=== PATIENT | male | born 1985 | race Caucasian/White ===

== ENCOUNTER 2020-12-06 21:06 | Outpatient (REF) | payer BC, SELFPAY ==
[2020-12-06 19:48] LABS: HCT 39.1 % (40.0-50.0); HGB 12.8 g/dL (13.5-17.5); MCH 29.6 pg (27.0-33.0); MCHC 32.7 % (32.0-36.0); MCV 90.3 fL (80-95); MPV 10.6 fL (8.0-11.0); Platelet Count 287 10^3/uL (130-400); RBC 4.33 10^6/uL (4.36-5.78); RDW 13.1 % (11.8-14.1); RDW-SD 43.1 fL; WBC 6.87 10^3/uL (4.4-10.8)
[2020-12-06 20:43] LABS: ALT 39 U/L (16-63); AST 23 U/L (15-37); Albumin 3.7 g/dL (3.4-5.0); Alkaline Phosphatase 112 U/L (46-116); Anion Gap 6.9 mmol/L (3-11); BUN 11 mg/dL (7-18); Bilirubin, Total 0.4 mg/dL (0.2-1.0); CO2 27.1 mmol/L (21.0-32.0); CREATININE 1.1 mg/dL (0.70-1.30); Calcium 9.1 mg/dL (8.5-10.1); Chloride 107 mmol/L (98-107); Glucose 93 mg/dL (74-106); Potassium 4.4 mmol/L (3.5-5.1); Sodium 141 mmol/L (136-145); TSH (W/Ref FT4) 0.84 uIU/mL (0.36-3.74); Total Protein 7.1 g/dL (6.4-8.2)
== END 2020-12-06 21:07 | disposition home or self-care (01) ==
LOC: NCHCN 21:06
PROVIDERS: PCP Nurse Practitioner Family; Visit Provider Nurse Practitioner
DX: R00.1 Bradycardia, unspecified (principal)
CPT/HCPCS: 80053; 85027; 84443

== ENCOUNTER 2020-12-16 01:16 | Outpatient (CLI) | payer BC, SELFPAY ==
--- NOTE | 2020-12-16 14:54 | DI.US_ITS ---
APPROVED REPORT EXAM: Comprehensive 2D, Doppler, and color-flow Echocardiogram Patient Location: Out-Patient Engineering Equipment Operator: Keara Gomez RDCS (AE) Indications: Heart murmur Other Information Study Quality: Adequate Conclusion Normal left ventricular wall thickness and chamber size. Estimated ejection fraction is 60%. There are no segmental wall motion abnormalities Normal right ventricular size and systolic function Both atria are normal in size There are no structural valvular abnormalities Mild mitral and tricuspid regurgitation Normal estimated right ventricular systolic pressure Wall motion Left Ventricle The left ventricle is normal size. The left ventricular systolic function is normal. The left ventric ular ejection fraction is within the normal range. There is normal left ventricular wall thickness. T here is normal LV segmental wall motion. There is no ventricular septal defect visualized. LVEF is 60 %. Right Ventricle The right ventricle is normal size. The right ventricular systolic function is normal. The RVSP is 23 .2mmHg. Atria The left atrium size is normal. The right atrium size is normal. The interatrial septum is intact wit h no evidence for an atrial septal defect. Aortic Valve The aortic valve is normal in structure. Aortic valve is trileaflet. There is no aortic valvular sten osis. No aortic regurgitation is present. Mitral Valve The mitral valve is normal in structure. No evidence of mitral valve stenosis. Mild mitral regurgitat ion. Tricuspid Valve The tricuspid valve is normal in structure. There is no tricuspid valve stenosis. Mild tricuspid regu rgitation. Pulmonic Valve The pulmonary valve is normal in structure. There is no pulmonic valvular stenosis. Trace pulmonic re gurgitation. Great Vessels The aortic root is normal in size. The ascending aorta is normal in size. Aortic arch is normal in ca liber. IVC is normal in size and collapses >50% with inspiration. Pericardium There is no pericardial effusion. 2D Dimensions IVSD d PLAX 1.00 cm M: 0.6-1.2 LV Vol A2C d MOD 200.8 mL LVPW d PLAX 1.03 cm M: 0.6 - 1.2 LV Vol A4C d MOD 186.5 mL LVID d PLAX 5.12 cm M: 4.2 - 5.8 LA vol/ BSA A2C s A-L 34.1 mL/m2 LVDs 3.45 cm M: 2.5 - 4.0 LA vol/ BSA A4C s A-L 29.4 mL/m2 Ao Root d 3.04 cm M: 3.1 - 3.7 LA Vol/ BSA Biplane s A-L 31.7 mL/m2 RA Area A4C 13.18 cm2 LA Area A4C s MOD 20.68 cm2 RA Vol/ BSA A4C s A-L 13.1 mL/m2 LA Area A2C s MOD 22.31 cm2 Ao Asc Diam d 2.98 cm M: 2.6 - 3.4 LV EF A4C MOD 59.5 % LV EF Teichholz 59.9 % LV EF A2C MOD 61.4 % LVEF (Edge's) 61.10 % M: 52 - 72 LV EF Biplane MOD 61.1 % LV Volume 140.99 mL M: 62 - 150 SV 120.67 mL LV Volume Index 60.25 mL/m2 M: 34 - 74 SV Index 51.61 mL/m2 LV Vol Biplane MOD 197.5 mL FS 32.05 % M-Mode TAPSE 2.83 cm (M/F) >1.7 LV Diastology MV E' medial 0.092 (>0.07 m/s) E/A Ratio 1.4 LV E/e MED 10.90 (<14) MV E Vmax 1.00 (0.4-1.3 m/s) MV E' lateral 0.177 (>0.1 m/s) MV A Vmax 0.70 (0.4-1.3 m/s) LV E/e LAT 5.65 (<14) MV E/A Ratio 1.42 MV E/E' medial 10.93 MV E/E' lateral 5.68 Aortic Valve LVOT Area 3.69 cm2 AoV Area Vmax 3.40 cm2 LVOT Vmax 1.37 m/s AoV Area/ BSA (Vmax) 1.45 cm2/m2 LVOT Mean Richard. 0.81 m/s ELIA Mean Richard. 2.88 cm2 LVOT Peak Grad 7.5 mmHg ELIA Mean Richard. Index 1.23 cm2/m2 LVOT Mean Grad 3.3 mmHg LVOT VTI 0.280 m LVOT Diam s 2.15 cm AoV Vmax 1.49 m/s Velocity Ratio 0.91 AoV Mean Richard. 1.03 m/s AoV Peak Grad 8.9 mmHg LVOT SV 103.41 mL AoV Mean Grad 4.8 mmHg AoV VTI 0.290 m AoV Area VTI 3.57 cm2 AoV Area/ BSA (VTI) 1.53 cm/m2 Mitral Valve MV DT 222 (160-240 msec) MV PHT 64 msec MV Area PHT 3.42 cm2 MV VTI 0.318 m MV Area VTI 3.25 (4.0-6.0 cm2) Pulmonary Valve PV Vmax 1.28 (0.5-1.5 m/s) RVOT Peak Gr. 2.42 mmHg PV Peak Grad 6.6 mmHg RVOT Mean Gr. 1.25 mmHg PV Mean Grad 3.6 mmHg RVOT VTI 0.180 m PV VTI 0.289 m RVOT Vmax 0.78 m/s Tricuspid Valve TR Peak Grad 20.2 mmHg TR Vmax 2.25 m/s RA Pressure 3.00 mmHg RVSP (TR) 23.2 mmHg
== END 2020-12-16 01:36 ==
PROVIDERS: PCP Nurse Practitioner Family; Visit Provider Nurse Practitioner
DX: R01.1 Cardiac murmur, unspecified (principal); I08.1 Rheumatic disorders of both mitral and tricuspid valves
CPT/HCPCS: 93306

== ENCOUNTER 2021-01-07 00:31 | Outpatient (CLI) | payer BC, SELFPAY ==
--- NOTE | 2021-01-25 10:35 | ZIOP_ITS ---
Date of service: 01/25/21 Time of Service: 10:35 14 Day Lithographic Camera Operator Referring Provider:: Matilda Lunsford Indications:: Bradycardia Note: This is a 14-day monitor and storage bin tender, reportedly ordered for bradycardia Predominant rhythm was sinus. Average heart rate was 68. Maximum was 153, minimum 31 There were very rare atrial and ventricular ectopic beats Sinus bradycardia and sinus arrhythmia were noted during sleep. Transient two to three second pauses were noted during sleep No patient symptoms were reported
== END 2021-01-07 00:32 | disposition home or self-care (01) ==
LOC: RT 00:31
PROVIDERS: PCP Nurse Practitioner; Visit Provider Nurse Practitioner
DX: R00.1 Bradycardia, unspecified (principal)
CPT/HCPCS: 93246

== ENCOUNTER 2021-02-11 12:44 | Outpatient (CLI) | payer BC, SELFPAY ==
--- NOTE | 2021-02-11 12:30 | RT.EKG_ITS ---
APPROVED REPORT Exam: Resting ECG Reason for Exam: Yogesh Heart Rate Patient Location: O HR:75 bpm ECG Measurements Heart Rate 75 AXIS AL 189 P 54 QRSd 82 QRS 68 QT 375 T 67 QTc 419 Conclusion Sinus rhythm...normal P axis, V-rate 50- 99 ST elev, probable normal early repol pattern...ST elevation, age<55 Normal Electrocardiogram
== END 2021-02-11 12:45 | disposition home or self-care (01) ==
LOC: DI.CARD 12:53
PROVIDERS: PCP Nurse Practitioner; Visit Provider Internal Medicine Cardiovascular Disease
DX: I44.1 Atrioventricular block, second degree (principal); R00.1 Bradycardia, unspecified; R55 Syncope and collapse
CPT/HCPCS: 93010

== ENCOUNTER 2021-12-09 16:25 | Outpatient (REF) | payer BC, SELFPAY ==
[2021-12-09 17:42] LABS: Hemoglobin A1C 5.5 % (<5.7)
[2021-12-09 17:52] LABS: Calculated LDL 96 mg/dL (<100); Cholesterol 162 mg/dL (<200); HDL Cholesterol 32 mg/dL (40-60); Triglyceride 171 mg/dL (<150)
[2021-12-12 09:03] LABS: Hepatitis C Ab w Rflx HCV PCR Negative (Negative)
== END 2021-12-09 16:26 | disposition home or self-care (01) ==
LOC: NCHCN 16:25
PROVIDERS: PCP Nurse Practitioner; Visit Provider Family Medicine
DX: Z00.00 Encounter for general adult medical examination without abnormal findings (principal); Z13.1 Encounter for screening for diabetes mellitus; Z11.59 Encounter for screening for other viral diseases; Z13.220 Encounter for screening for lipoid disorders
CPT/HCPCS: 80061; 86803; 83036